=== PATIENT | female | born 1945 | race Caucasian/White ===

== ENCOUNTER → 2020-06-30 15:49 | Outpatient (CLI) | payer MEDICARE, SELFPAY | PROVIDERS: Visit Provider Urology | DX: N39.0 Urinary tract infection, site not specified (principal) | CPT/HCPCS: 87086 ==

== ENCOUNTER 2021-06-29 15:27 | Emergency (ER) | payer MEDICARE, SELFPAY ==
--- NOTE | 2021-06-29 15:59 | ECG_ITS ---
APPROVED REPORT Exam: Resting ECG HR:75 bpm ECG Measurements Heart Rate 75 AXES NE 116 P 99 QRSd 60 QRS 40 QT 392 T 70 QTc 437 Conclusion Normal sinus rhythm Low voltage QRS Septal infarct, age undetermined Abnormal ECG Electronically signed by : Saeed Jordan MD 06/30/2021 10:55:45
[2021-06-29 16:07] VITALS: BP 135/63; PULSE 85; RESP 18; TEMP 36.8; O2SAT 96; BMI 31.6
--- NOTE | 2021-06-29 16:14 | HMH.EDGENADL ---
ED Disposition Clinical Impression: Atypical chest pain Disposition: Home, Self-Care Condition on Discharge: Good Instructions: DI for Shortness of Breath, DI for Atypical Chest Pain Additional Instructions: Additional instructions for CHEST PAIN: See your physician as soon as possible for further evaluation. Return immediately if worsening chest pain, vomiting, shortness of breath, fever, coughing of blood. Referrals: Lizette Brady [Primary Care Provider] - - Critical Care Critical Care Time: No Attestation: On 06/29/21, the high probability of a clinically significant, sudden or life threatening deterioration of the following system(s) required my full and direct attention, intervention and personal management. The time I documented below is in addition to time spent performing reported procedures but includes the following listed in this critical care notation. Medical Decision Making - Warren Inquiry Pt receiving controlled substance: No Vital Signs: 06/29/21 16:07 Temperature 98.3 F Temperature Source Oral Pulse Rate [Right Radial] 85 Respiratory Rate 18 Blood Pressure [Right Arm] 135/63 Blood Pressure Mean [Right Arm] 87 Blood Pressure Source [Right Arm] Automatic Cuff Blood Pressure Position [Right Arm] Supine 02 Sat by Pulse Oximetry 96 Oxygen Delivery Method Room Air - Lab Data Lab Results 06/29/21 16:39: WBC 9.2, RBC 3.48 L, Hgb 9.0 L, Hct 31.3 L, MCV 89.9, MCH 26.0 L, MCHC 28.9 L, RDW 15.5, Plt Count 421, MPV 8.7, Neut % (Auto) 82.3 H, Lymph % (Auto) 12.1, [place] % (Auto) 4.8, Eos % (Auto) 0.5, Baso % (Auto) 0.3, Neut # (Auto) 7.5, Lymph # (Auto) 1.1, [place] # (Auto) 0.4, Eos # (Auto) 0.0, Baso # (Auto) 0.0 06/29/21 16:39: Sodium 140, Potassium 3.4 L, Chloride 92 L, Carbon Dioxide 39 H, Anion Gap 12.4, BUN 12, Creatinine 0.80, Estimated Creat Clear 63, Estimated GFR 70, Est GFR ( Amer) 85, Glucose 108 H, Calcium 9.0, Total Bilirubin 0.2, AST 20, ALT 11 L, Alkaline Phosphatase 75, Troponin I < 0.01, Total Protein 7.4, Albumin 4.4, Globulin 3.0, Albumin/Globulin Ratio 1.5 06/29/21 16:39: Lactate 0.7 06/29/21 16:39: D-Dimer 0.57 H 06/29/21 19:15: Troponin I < 0.01 Result diagrams: 06/29/21 16:39 06/29/21 16:39 Orders (Tests/Meds): ED MEDICATIONS Discontinued Medications Generic Name Dose Route Start Last Admin Trade Name Grey PRN Reason Stop Dose Admin Iopamidol 70 ml 06/29/21 17:47 06/29/21 17:47 Iopamidol-370 (76%);100ml Bottle IV 06/29/21 17:48 70 ml ONCE ONE Administration Sodium Chloride 50 ml 06/29/21 17:47 06/29/21 17:47 0.9 % Sodium Chloride 50 Ml Vial IV 06/29/21 17:48 50 ml ONCE ONE Administration Sodium Chloride 10 ml 06/29/21 17:47 06/29/21 17:47 Sodium Chloride 0.9% 10ml Syr (Rad Only) IV 06/29/21 17:48 10 ml ONCE ONE Administration ORDERS Category Date Time Status Troponin I Q3H Lab 06/29/21 22:30 Ordered Blood Culture Stat Micro 06/29/21 16:39 Received - Radiology Data #1 Image(s): Chest Image Reviewed: Yes I have reviewed radiologist's interpretation PROCEDURE INFORMATION: Exam: XR Chest Exam date and time: 06/29/2021 4:18 PM Age: 75 years old Clinical indication: Cough; Additional info: Coughing, SOB TECHNIQUE: Imaging protocol: XR of the chest. Views: 2 views. COMPARISON: No relevant prior studies available. FINDINGS: Lungs: The left basilar opacity is small, but worrisome for pneumonia. Pleural spaces: Unremarkable. No pleural effusion. No pneumothorax. Heart/Mediastinum: Heart is mildly enlarged. Bones/joints: Unremarkable. IMPRESSION: Small left basilar pneumonia suspected. Recommend follow-up to ensure resolution. - CT Data CT Scan: Chest (CTA) Time Received: 18:[address] Reviewed: Yes: I have viewed the radiologist's interpretation Findings Narrative: PROCEDURE INFORMATION: Exam: CTA Ch
--- NOTE | 2021-06-29 16:18 | XR_ITS ---
PROCEDURE INFORMATION: Exam: XR Chest Exam date and time: 06/29/2021 4:18 PM Age: 75 years old Clinical indication: Cough; Additional info: Coughing, SOB TECHNIQUE: Imaging protocol: XR of the chest. Views: 2 views. COMPARISON: No relevant prior studies available. FINDINGS: Lungs: The left basilar opacity is small, but worrisome for pneumonia. Pleural spaces: Unremarkable. No pleural effusion. No pneumothorax. Heart/Mediastinum: Heart is mildly enlarged. Bones/joints: Unremarkable. IMPRESSION: Small left basilar pneumonia suspected. Recommend follow-up to ensure resolution.
--- NOTE | 2021-06-29 16:21 | PC.NURSE ---
Spoke with vielka in RAD to get chest xray
[2021-06-29 16:54] LABS: Basophils % 0.3 % (0.1-2.0); Eosinophils % 0.5 % (0.1-12.0); Hematocrit 31.3 % (37.0-47.0); Lymphocytes # 1.1 K/mm3 (0.7-4.5); Lymphocytes % 12.1 % (10-50); Mean Corpuscular HGB Conc 28.9 g/dL (31.8-35.4); Mean Corpuscular Volume 89.9 fl (81-99); Mean Platelet Volume 8.7 fl (7.4-10.4); Monocytes # 0.4 K/mm3 (0.1-1.0); Monocytes % 4.8 % (1.7-9.3); Neutrophils # 7.5 K/mm3 (1.8-7.8); Neutrophils % 82.3 % (37.0-80.0); Platelet Count 421 K/mm3 (142-424); Red Blood Count 3.48 M/mm3 (4.20-5.40); Red Cell Distribution Width 15.5 % (11.5-17.5); White Blood Count 9.2 K/mm3 (4.8-10.8)
[2021-06-29 17:08] LABS: Alanine Aminotransferase 11 U/L (12-78); Albumin Level 4.4 g/dl (3.5-5.0); Albumin/Globulin Ratio 1.5 (1.1-1.8); Alkaline Phosphatase 75 U/L (38-126); Aspartate Amino Transferase 20 U/L (14-36); Bilirubin,Total 0.2 mg/dl (0.2-1.3); Blood Urea Nitrogen 12 mg/dl (7-17); Chloride 92 mmol/L (98-107); Creatinine Clearance Estimated 63 mL/min (50-200); Estimated Glomerular Filt Rate 70 ml/min (>60); GFR (African American) 85 ML/MIN (>60); Glucose 108 mg/dl (74-100); Potassium 3.4 mmoL/L (3.5-5.1); Sodium 140 mmol/L (136-145); Total Protein,Serum 7.4 g/dl (6.3-8.2)
[2021-06-29 17:09] LABS: Lactic Acid 0.7 mmol/L (0.7-2.1)
[2021-06-29 17:13] LABS: D-Dimer 0.57 ug/mL (0.0-0.5)
[2021-06-29 17:15] LABS: Anion Gap 12.4 mEq/L (5-15); Carbon Dioxide 39 mmol/L (22.0-30.0)
--- NOTE | 2021-06-29 17:27 | CT_ITS ---
PROCEDURE INFORMATION: Exam: CTA Chest With Contrast Exam date and time: 06/29/2021 5:27 PM Age: 75 years old Clinical indication: Chest wall pain; Additional info: Cp, SOA, low o2 sat, elev d-dimer TECHNIQUE: Imaging protocol: Computed tomographic angiography of the chest with contrast. 3D rendering (Not supervised by radiologist): MIP and/or 3D reconstructed images were created by the technologist. Radiation optimization: All CT scans at this facility use at least one of these dose optimization techniques: automated exposure control; mA and/or kV adjustment per patient size (includes targeted exams where dose is matched to clinical indication); or iterative reconstruction. Contrast material: ISOVUE; Contrast volume: 70 ml; Contrast route: INTRAVENOUS (IV); COMPARISON: CR XR CHEST 2V 06/29/2021 4:44 PM FINDINGS: Pulmonary arteries: No evidence of pulmonary embolus to the segmental level in most cases. Aorta: Unremarkable. No aortic aneurysm. No aortic dissection. Lungs: A few small calcified pulmonary nodules are likely benign granulomata. Mild bilateral atelectasis. Mild peribronchial thickening is seen primarily centrally. Pleural spaces: Unremarkable. No pneumothorax. No pleural effusion. Heart: Coronary artery calcifications noted. Lymph nodes: Unremarkable. No enlarged lymph nodes. Pancreas: Some focal hypoattenuation seen in the pancreatic head. This is partially imaged and may represent volume averaging, but correlation with recent CT or MR of the abdomen is recommended. Bones/joints: Unremarkable. No acute fracture. Soft tissues: Unremarkable. IMPRESSION: 1. No evidence of pulmonary embolus. 2. Evidence of mild bronchitis. 3. Likely artifactual focal hypoattenuation in the pancreas. However, recommend correlation with recent CT or MRI abdomen to exclude a sinister cause.
[2021-06-29 17:34] LABS: Troponin I < 0.01 ng/ml (0.00-0.034)
[2021-06-29 19:54] LABS: Troponin I < 0.01 ng/ml (0.00-0.034)
[2021-06-29 20:12] VITALS: BP 132/79; PULSE 75; RESP 18; TEMP 36.8; O2SAT 98
== END 2021-06-29 20:28 | disposition home or self-care (01) ==
PROVIDERS: Emergency Provider Emergency Medicine; PCP Family Medicine
DX: R07.89 Other chest pain (principal); I10 Essential (primary) hypertension; E78.5 Hyperlipidemia, unspecified; J44.9 Chronic obstructive pulmonary disease, unspecified
CPT/HCPCS: 36415; 71046; 71275; 80053; 83605; 84484; 85025; 85378; 87040; 93005; 99283; Q9967

== ENCOUNTER 2022-03-21 11:07 | Observation (INO) | payer MEDICARE, SELFPAY ==
[2022-03-21] VITALS (9 sets, daily range): BP systolic 122–147; BP diastolic 49–72; PULSE 77–87; RESP 16–22; TEMP 36.7–37.4; O2SAT 94–99; BMI 28.3; BMI 28.0
--- NOTE | 2022-03-21 11:16 | HMH.EDFALL ---
ED Disposition Clinical Impression: Respiratory failure Qualifiers: Chronicity: unspecified Respiratory failure complication: hypercapnia Qualified Code(s): J96.92 - Respiratory failure, unspecified with hypercapnia Disposition: Admitted as Observation Condition on Discharge: Good - Critical Care Critical Care Time: Yes Attestation: On , the high probability of a clinically significant, sudden or life threatening deterioration of the following system(s) required my full and direct attention, intervention and personal management. The time I documented below is in addition to time spent performing reported procedures but includes the following listed in this critical care notation. Vital system(s) involved:: Respiratory Failure My critical care processes included: Assessment & monitoring of V/S, Initial and Re-exams, Data Review/Interpretation, Coordinating Care, Medication Orders and management, Documentation Medical Decision Making - Medical Records Medical records reviewed: Yes: I reviewed the patient's medical records. - Warren Inquiry Pt receiving controlled substance: No Vital Signs: 03/21/22 11:23 03/21/22 11:30 03/21/22 12:59 Temperature 99.3 F Temperature Source Oral Pulse Rate 85 Pulse Rate [Left Radial] 87 Respiratory Rate 17 Blood Pressure 141/64 H 147/71 H Blood Pressure [Right Arm] 128/62 Blood Pressure Mean 89 87 Blood Pressure Mean [Right Arm] 84 02 Sat by Pulse Oximetry 99 96 97 Oxygen Delivery Method Nasal Cannula Nasal Cannula Oxygen Flow Rate (LPM) 3 3 - Lab Data Lab Results 03/21/22 11:22: WBC 6.8, RBC 3.39 L, Hgb 10.2 L, Hct 33.5 L, MCV 98.9, MCH 30.1, MCHC 30.5 L, RDW 13.0, Plt Count 273, MPV 7.6, Neut % (Auto) 81.5 H, Lymph % (Auto) 12.8, [place] % (Auto) 4.7, Eos % (Auto) 0.5, Baso % (Auto) 0.6, Neut # (Auto) 5.5, Lymph # (Auto) 0.9, [place] # (Auto) 0.3, Eos # (Auto) 0.0, Baso # (Auto) 0.0 03/21/22 11:22: Sodium 138, Potassium 3.4 L, Chloride 89 L, Carbon Dioxide 48 H*, Anion Gap 4.4 L, BUN 14, Creatinine 0.80, Estimated Creat Clear 56, Estimated GFR 70, Est GFR ( Amer) 85, Glucose 141 H, Calcium 9.3, Total Bilirubin 0.4, AST 19, ALT 12, Alkaline Phosphatase 69, Total Protein 7.0, Albumin 4.1, Globulin 2.9, Albumin/Globulin Ratio 1.4 03/21/22 11:44: Urine Color Yellow, Urine Appearance Clear, Urine pH 7.0, Ur Specific [place] <= 1.005, Urine Protein Negative, Urine Glucose (UA) Negative, Urine Ketones Negative, Urine Blood Trace-i, Urine Nitrate Negative, Urine Bilirubin Negative, Urine Urobilinogen 0.2, Ur Leukocyte Esterase 2+ A, Urine RBC Occasional, Urine WBC 5-10, Ur Squamous Epith Cells 10-20, Urine Bacteria 2+, Urine Mucus Trace 03/21/22 12:05: Specimen Source R radial, O2 % 3lpm, ABG pH 7.30 L, ABG pCO2 99.0 H, ABG pO2 95.7, ABG HCO3 47.7 H, ABG Total CO2 50.8 H, ABG O2 Saturation 97, ABG Base Excess 21.3 H, Joshua Test Acceptable Result diagrams: 03/21/22 11:22 03/21/22 11:22 Orders (Tests/Meds): ED MEDICATIONS Generic Name Dose Route Start Last Admin Trade Name Grey PRN Reason Stop Dose Admin Ceftriaxone Sodium 1 gm/ 50 mls @ 100 mls/hr 03/21/22 14:15 Sodium Chloride IV 04/04/22 14:14 Q24H COUNTS INCLUDE 234 BEDS AT THE [facility] ORDERS Category Date Time Status Chest XR -- portable [XR chest portable] Stat Exams 03/21/22 13:21 Taken Rapid PCR Covid and Flu A/B Stat Lab 03/21/22 13:28 Received Urine Culture Stat Micro 03/21/22 11:44 Received - ECG Data Tracing #1 I reviewed this ECG and interpreted as documented below: ekg by me nsr, qrs non spec, no st elev - Physician Consults Time: 14:04 (dr deal accepts obs here) Fall HPI - General Stated Complaint: Fall Time Seen by Provider: 03/21/22 11:16 - History of Present Illness HPI Narrative: lightheaded and 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
--- NOTE | 2022-03-21 11:21 | ECG_ITS ---
APPROVED REPORT Exam: Resting ECG HR:84 bpm ECG Measurements Heart Rate 84 AXES ND 108 P 55 QRSd 94 QRS 65 QT 361 T 68 QTc 401 Conclusion SINUS RHYTHM WITH SHORT ND INTERVAL POSSIBLE RIGHT VENTRICULAR CONDUCTION DELAY [RSR (QR) IN V1/V2] BORDERLINE ECG UNCONFIRMED REPORT Electronically signed by : Saeed Jordan MD 03/21/2022 21:04:50
--- NOTE | 2022-03-21 11:23 | PC.NURSE ---
EKG obtained and given to SISSY MONTES
--- NOTE | 2022-03-21 11:25 | PC.NURSE ---
Family at BS
[2022-03-21 11:35] LABS: Basophils % 0.6 % (0.1-2.0); Chloride 89 mmol/L (98-107); Eosinophils % 0.5 % (0.1-12.0); Hematocrit 33.5 % (37.0-47.0); Hemoglobin 10.2 g/dL (12.2-16.2); Lymphocytes # 0.9 K/mm3 (0.7-4.5); Lymphocytes % 12.8 % (10-50); Mean Corpuscular HGB Conc 30.5 g/dL (31.8-35.4); Mean Corpuscular Hemoglobin 30.1 pg (27.0-31.2); Mean Corpuscular Volume 98.9 fl (81-99); Mean Platelet Volume 7.6 fl (7.4-10.4); Monocytes # 0.3 K/mm3 (0.1-1.0); Monocytes % 4.7 % (1.7-9.3); Neutrophils # 5.5 K/mm3 (1.8-7.8); Neutrophils % 81.5 % (37.0-80.0); Platelet Count 273 K/mm3 (142-424); Potassium 3.4 mmoL/L (3.5-5.1); Red Blood Count 3.39 M/mm3 (4.20-5.40); Sodium 138 mmol/L (136-145); White Blood Count 6.8 K/mm3 (4.8-10.8)
[2022-03-21 11:38] LABS: Alanine Aminotransferase 12 U/L (12-78); Albumin Level 4.1 g/dl (3.5-5.0); Albumin/Globulin Ratio 1.4 (1.1-1.8); Alkaline Phosphatase 69 U/L (38-126); Aspartate Amino Transferase 19 U/L (14-36); Bilirubin,Total 0.4 mg/dl (0.2-1.3); Blood Urea Nitrogen 14 mg/dl (7-17); Calcium 9.3 mg/dl (8.4-10.2); Creatinine Clearance Estimated 56 mL/min (50-200); Estimated Glomerular Filt Rate 70 ml/min (>60); GFR (African American) 85 ML/MIN (>60); Globulin 2.9 g/dL (1.3-3.2); Glucose 141 mg/dl (74-100)
[2022-03-21 11:47] LABS: Anion Gap 4.4 mEq/L (5-15); Carbon Dioxide 48 mmol/L (22.0-30.0)
--- NOTE | 2022-03-21 11:55 | PC.NURSE ---
ua obtained and sent to the lab
--- NOTE | 2022-03-21 12:26 | PC.NURSE ---
called RT for abg collection
[2022-03-21 12:29] LABS: Microscopic, Urine URINE MICROSCOPIC (MICROSCOPIC)
[2022-03-21 12:32] LABS: Appearance,Urine CLEAR (Clear); Bilirubin,Urine Negative (Negative); Blood, Urine TRACE-I (Negative); Color,Urine YELLOW (Yellow); Glucose,Urine (UA) Negative (Negative); Ketones,Urine Negative (Negative); Leukocyte Esterase,Urine 2+ (Negative); Nitrate,Urine Negative (Negative); Protein,Urine Negative (Negative); Specific Gravity, Urine <= 1.005 (1.005-1.030); Urobilinogen,Urine 0.2 EU/dl (0.2)
[2022-03-21 12:39] LABS: ABG Base Excess 21.3 mmol/L (-2.4-2.3); ABG HCO3 47.7 mmhg (22.0-26.0); ABG Oxygen Saturation 97 % (90-100); ABG PO2 95.7 mmhg (80-100); ABG TCO2 50.8 mmhg (23-27)
[2022-03-21 12:40] LABS: Allen's Test ACCEPTABLE; Oxygen 3LPM %; Source R RADIAL
[2022-03-21 12:45] LABS: Bacteria,Urine 2+ /lpf; Mucus,Urine Trace /lpf; RBC,Urine Occasional #/hpf (0-3)
--- NOTE | 2022-03-21 13:20 | PC.NURSE ---
called RT for bipap
--- NOTE | 2022-03-21 13:21 | XR_ITS ---
FINAL REPORT CLINICAL HISTORY: soa, DIZZINESS, PT ON BIPAP COMPARISON: June 29, 2021 FINDINGS: A single PA view of the chest was obtained. The cardiac and mediastinal silhouettes are within normal limits. The lungs are clear. There is no effusion or pneumothorax. No acute osseous abnormality is identified. IMPRESSION: No radiographic evidence of acute cardiac or pulmonary disease on this single view of the chest. Reviewed, Interpreted and Dictated by Rupali Hansen MD Transcribed by Kanchan Jarquin Authenticated and [facility]
--- NOTE | 2022-03-21 13:27 | PC.NURSE ---
RT in room to set up BIPAP on patient
--- NOTE | 2022-03-21 13:29 | PC.NURSE ---
Covid swab sent to lab
[2022-03-21 13:33] LABS: Influenza A, PCR Not Detected (NotDetected); Influenza B, PCR Not Detected (NotDetected)
--- NOTE | 2022-03-21 13:55 | PC.NURSE ---
Called and spoke with Arabella in dietary for regular lunch tray
--- NOTE | 2022-03-21 14:02 | PC.NURSE ---
Spoke with Enid in care management regarding patient admission
[2022-03-21 14:26] LABS: Coronavirus 19, PCR Detected (NotDetected)
--- NOTE | 2022-03-21 14:29 | PC.NURSE ---
pt sitting up on side of the bed with assistance from Mary Underwood, eating lunch tray. Family at . pt is wearing NC on 3 liters.
--- NOTE | 2022-03-21 14:32 | PC.NURSE ---
Isolation precautions sign placed on ER room door
--- NOTE | 2022-03-21 14:34 | PC.NURSE ---
notified supervisor [employer] of positive covid test states she will get pt a bed assignment
--- NOTE | 2022-03-21 15:18 | PC.NURSE ---
attempted to call report to steve on the floor. states she will call back
--- NOTE | 2022-03-21 16:03 | PC.NURSE ---
called report to demetri wilson on the floor
--- NOTE | 2022-03-21 16:44 | HMH.HP ---
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 She has not been sleeping well and has had a lot of stress. 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 She has not been sick or been around anyone who has been sick. 911 was called and she was brought to the ER. After evaluation in the emergency room, she was found to have a PCO2 of 99. She also was found to be COVID-positive. Chest x-ray showed nothing acute. She will be admitted for hypercapnic respiratory failure and started on BIPAP. <Regina Pabon 03/21/22 17:41> [facility] History I have reviewed the patient's past medical history: Yes <Regina Pabon 03/21/22 16:49> Medical History: Reports:: Home Oxygen (3 liters/NC) <Suhas Berger - 03/21/22 18:38> Reports:: Chronic Obstructive Pulmonary Disease (COPD), Hyperlipidemia, Hypertension, Lung Disease <Regina Pabon 03/21/22 17:41> *Have you ever received a pneumonia vaccine?: No <Regina Pabon 03/21/22 16:49> *Have you received a flu vaccine this season?: No <Regina Pabon 03/21/22 16:49> Other Medical History: Reports: Arthritis, Thyroid Disease <Regina Pabon 03/21/22 16:49> Other Surgeries: Yes: Other <Suhas Berger - 03/21/22 18:38> Yes: Colonoscopy, Hysterectomy-Total, Other (hammertoe bilateral) <Regina Pabon 03/21/22 17:41> Amputation: No <Regina Pabon 03/21/22 16:49> Fractures: No <Regina Pabon 03/21/22 16:49> - *Social History Smoking Status: Never smoker <Regina Pabon 03/21/22 16:49> Alcohol Intake: never <Regina Pabon 03/21/22 16:49> Substance Use Type: denies use <Regina Pabon 03/21/22 16:49> *Occupational Status:: retired <CmRegina 03/21/22 16:49> Housing: house <Regina Pabon 03/21/22 16:49> Household Members: none <Regina Pabon 03/21/22 16:49> *Travel in the last 8 weeks: None <CmRegina - 03/21/22 16:49> Family Hx:: Hypertension <IanshahzadRegina 03/21/22 17:41> Review of Systems - Constitutional Denies chills, Denies fever(s) <IanshahzadRegina 03/21/22 17:41> - Eyes Denies blurry vision, Denies double vision <IanshahzadRegina 03/21/22 17:41> - ENT Denies nasal congestion, Denies sore throat <IanshahzadRegina 03/21/22 17:41> - *Cardiovascular Denies chest pain, Denies shortness of breath <IanshahzadRegina 03/21/22 17:41> - *Respiratory Denies cough, Denies shortness of breath [email or web address] 03/21/22 17:41> - *Gastrointestinal Denies abdominal pain, Denies loose stools, Denies nausea, Denies vomiting <IanshahzadRegina 03/21/22 17:41> - *Genitourinary Denies difficulty urinating, Denies painful urination <IanshahzadRegina 03/21/22 17:41> - *Musculoskeletal Denies joint pain <[email or web address] 03/21/22 17:41> - *Neurologic Reports weakness, Denies headache(s), Denies dizziness <[email or web address] 03/21/22 17:41> Meds Home Medications Medication Instructions Recorded Confirmed Type albuterol sulfate 1.25 mg INHALATION ONCE 10/30/17 03/21/22 History clonazepam 1 mg tablet 1 mg PO TIDP PRN 10/30/17 03/21/22 History conjugated estrogens 25 mg 1 dose IM DIRECTED 10/30/17 03/21/22 History solution for injection estradiol 0.05 mg/24 hr semiweekly 1 patch TRANSDERMA ONCE 10/30/17 03/21/22 History transdermal patch lisinopril 10 mg tablet 10 mg PO ONCE 10/30/17 03/21/22 History aripiprazole 5 mg tablet 5 mg PO DAILY tab 01/29/18 03/21/22 History pantoprazole 20 mg tablet,delayed 20 mg PO DAILY tab 01/29/18 03/21/22 History release amlodipine 2.5 mg tablet 2.5 mg PO DAILY 04/30/18 03/21/22 History levothyroxine 25 mcg tablet 25 mcg PO DAILY 04/30/18 03/21/22 History <N
[2022-03-22] VITALS: BP 136/45; PULSE 71; RESP 20; TEMP 36.7; O2SAT 99
[2022-03-22 04:00] VITALS: BP 132/59; PULSE 82; RESP 22; TEMP 36.6; O2SAT 97
--- NOTE | 2022-03-22 04:41 | PC.NURSE ---
Patient continues to be A&O x4. Patient has rested well this shift. Patient currently on 3l NC and tolerates it well sating above 90%. However when o2 removed patient desats into the 80%. Patient ambulated to the restroom with standby assist. No other complaints voiced.
[2022-03-22 04:47] VITALS: BMI 27.0
--- NOTE | 2022-03-22 07:24 | P.CONPHA_ITS ---
[facility] Pharmacy VTE Monitoring - Patient Demographics Admission date: 03/22/22 Report Date: 03/22/22 Time: 07:24 Allergies/Adverse Reactions: Patient Allergies erythromycin base Adverse Reaction (Unknown, Verified 03/21/22 16:21) Vomiting Height: 1.6 m Weight: 69.173 kg Patient Problems: Current Active Problems Respiratory failure (Acute) Hypercapnic respiratory failure (Acute) COVID-19 (Acute) Hypertension (Chronic) Hyperlipidemia (Chronic) COPD (chronic obstructive pulmonary disease) (Acute) Oxygen dependent (Acute) Hypothyroidism (Acute) - VTE Risk Labs: VTE Related Lab Results Hgb 10.2 g/dL (12.2-16.2) L 03/21/22 11:22 Hct 33.5 % (37.0-47.0) L 03/21/22 11:22 Plt Count 273 K/mm3 (142-424) 03/21/22 11:22 BUN 14 mg/dl (7-17) 03/21/22 11:22 Creatinine 0.80 mg/dl (0.52-1.04) 03/21/22 11:22 Estimated Creat Clear 56 mL/min (50-200) 03/21/22 11:22 Was VTE Risk Assessment Performed: Yes VTE Score: 6 VTE Risk Level: Moderate Risk Clinical Trial Participant: No - Prophylaxis VTE Prophylaxis Ordered?: Yes Types of VTE Prophylaxis: TEDS Knee High
[2022-03-22 07:34] VITALS: BP 133/52; PULSE 74; RESP 16; TEMP 36.8; O2SAT 98
[2022-03-22 08:00] VITALS: O2SAT 94
--- NOTE | 2022-03-22 08:26 | HMH.ACPN2 ---
<Regina Pabon - Last Filed: 03/22/22 08:26> Internal Medicine - PN: Subj *Date: 03/22/22 *Time: 08:26 Interval history: Patient states she is feeling better this morning. She has had no more near syncopal episodes. Her weakness has improved. She denies any shortness of breath or chest pain. She slept all night with nasal oxygen and has not had BiPAP since the emergency room. Exam Vital signs and Labs for Last 24 Hours: Temp Pulse Resp BP Pulse Ox 98.3 F 74 16 133/52 L 98 03/22/22 07:34 03/22/22 07:34 03/22/22 07:34 03/22/22 07:34 03/22/22 07:34 Laboratory Results - last 24 hr 03/21/22 11:22: WBC 6.8, RBC 3.39 L, Hgb 10.2 L, Hct 33.5 L, MCV 98.9, MCH 30.1, MCHC 30.5 L, RDW 13.0, Plt Count 273, MPV 7.6, Neut % (Auto) 81.5 H, Lymph % (Auto) 12.8, [place] % (Auto) 4.7, Eos % (Auto) 0.5, Baso % (Auto) 0.6, Neut # (Auto) 5.5, Lymph # (Auto) 0.9, [place] # (Auto) 0.3, Eos # (Auto) 0.0, Baso # (Auto) 0.0 03/21/22 11:22: Sodium 138, Potassium 3.4 L, Chloride 89 L, Carbon Dioxide 48 H*, Anion Gap 4.4 L, BUN 14, Creatinine 0.80, Estimated Creat Clear 56, Estimated GFR 70, Est GFR ( Amer) 85, Glucose 141 H, Calcium 9.3, Total Bilirubin 0.4, AST 19, ALT 12, Alkaline Phosphatase 69, Total Protein 7.0, Albumin 4.1, Globulin 2.9, Albumin/Globulin Ratio 1.4 03/21/22 11:44: Urine Color Yellow, Urine Appearance Clear, Urine pH 7.0, Ur Specific [place] <= 1.005, Urine Protein Negative, Urine Glucose (UA) Negative, Urine Ketones Negative, Urine Blood Trace-i, Urine Nitrate Negative, Urine Bilirubin Negative, Urine Urobilinogen 0.2, Ur Leukocyte Esterase 2+ A, Urine RBC Occasional, Urine WBC 5-10, Ur Squamous Epith Cells 10-20, Urine Bacteria 2+, Urine Mucus Trace 03/21/22 12:05: Specimen Source R radial, O2 % 3lpm, ABG pH 7.30 L, ABG pCO2 99.0 H, ABG pO2 95.7, ABG HCO3 47.7 H, ABG Total CO2 50.8 H, ABG O2 Saturation 97, ABG Base Excess 21.3 H, Joshua Test Acceptable 03/21/22 13:28: SARS-CoV-2 (PCR) Detected A, Influenza A Untype (PCR) Not detected, Influenza Type B (PCR) Not detected I & O for Last 24 hours: Intake & Output 03/19/22 03/20/22 03/21/22 03/22/22 11:59 11:59 11:59 11:59 Intake Total 300 / 300 Balance 300 / 300 Weight 160 lb 152 lb 8 oz Microbiology Reports for the Last 24 Hours: Microbiology 03/21/22 11:44 Urine,Clean Catch Urine Culture - Preliminary Gram Positive Cocci - Constitutional no acute distress - *Routine Respiratory Exam Present: CTA bilaterally - *Routine Cardiovascular Exam Present: RRR - *Routine Abdominal Exam Present: soft, normoactive bowel sounds. Absent: tenderness - *Routine Extremities Exam Absent: cyanosis, clubbing, edema - *Routine Skin Exam Present: warm. Absent: rash - *Routine Neurological Exam Present: alert, oriented X3 Assessment and Plan (1) Hypercapnic respiratory failure Status: Acute Category: Medical Code(s): J96.92 - Respiratory failure, unspecified with hypercapnia (2) COVID-19 Status: Acute Category: Medical Code(s): U07.1 - COVID-19 (3) Hypertension Status: Chronic Category: Medical Code(s): I10 - Essential (primary) hypertension (4) Hyperlipidemia Status: Chronic Category: Medical Code(s): E78.5 - Hyperlipidemia, unspecified (5) COPD (chronic obstructive pulmonary disease) Status: Acute Category: Medical Code(s): J44.9 - Chronic obstructive pulmonary disease, unspecified (6) Oxygen dependent Status: Acute Category: Medical Code(s): Z99.81 - Dependence on supplemental oxygen (7) Hypothyroidism Status: Acute Category: Medical Code(s): E03.9 - Hypothyroidism, unspecified - Assessment and plan all Dx Assessment and Plan for all problems:: Patient is improving. Her oxygen saturations have been 98% on 3 L. She has no other COVID symptoms. She can likely be discharged home today. <Suhas Berger - Last Filed: 03/22/22 10:31> Interna
--- NOTE | 2022-03-22 08:46 | PC.NURSE ---
spoke with md about patient on current 3l o2. didn't have bipap upon coming to floor, nor any follow up abg orders. he stated patient looked well and was doing well on base line o2 so would readdress after morning rounds. did not feel it was needed right now.
[2022-03-22 09:07] LABS: Basophils % 0.5 % (0.1-2.0); Eosinophils # 0.1 K/mm3 (0.0-0.4); Eosinophils % 1.6 % (0.1-12.0); Hematocrit 32.7 % (37.0-47.0); Hemoglobin 10.3 g/dL (12.2-16.2); Lymphocytes % 16.2 % (10-50); Mean Corpuscular HGB Conc 31.5 g/dL (31.8-35.4); Mean Corpuscular Hemoglobin 30.8 pg (27.0-31.2); Mean Corpuscular Volume 97.8 fl (81-99); Mean Platelet Volume 7.6 fl (7.4-10.4); Monocytes # 0.4 K/mm3 (0.1-1.0); Monocytes % 5.8 % (1.7-9.3); Neutrophils # 4.6 K/mm3 (1.8-7.8); Platelet Count 204 K/mm3 (142-424); Red Blood Count 3.35 M/mm3 (4.20-5.40); Red Cell Distribution Width 13.2 % (11.5-17.5); White Blood Count 6.1 K/mm3 (4.8-10.8)
[2022-03-22 09:33] LABS: Blood Urea Nitrogen 11 mg/dl (7-17); Calcium 9.1 mg/dl (8.4-10.2); Chloride 90 mmol/L (98-107); Creatinine Clearance Estimated 53 mL/min (50-200); Estimated Glomerular Filt Rate 97 ml/min (>60); GFR (African American) 118 ML/MIN (>60); Glucose 107 mg/dl (74-100); Potassium 4.4 mmoL/L (3.5-5.1); Sodium 137 mmol/L (136-145)
[2022-03-22 09:40] LABS: Anion Gap 11.4 mEq/L (5-15)
[2022-03-22 09:51] LABS: Carbon Dioxide 44 mmol/L (22.0-30.0)
--- NOTE | 2022-03-22 09:52 | HMH.PHAINT ---
HOME MEDICATION LIST VERIFIED USING LIST FROM PCP OFFICE AND PT INTERVIEW
--- NOTE | 2022-03-22 10:32 | PC.NURSE ---
RESP CARE NOTE: Pt is COvid positive and per CDC guidelines, sputum cannot be induced. Specimen cup at bedside with instruction to obtain an expectorated sputum specimen. Pt states understanding.
[2022-03-22 11:09] VITALS: BP 120/55; PULSE 71; RESP 17; TEMP 36.7; O2SAT 97
--- NOTE | 2022-03-22 22:29 | [facility].DCSUM ---
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 She has not been sleeping well and has had a lot of stress. 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 She has not been sick or been around anyone who has been sick. 911 was called and she was brought to the ER. After evaluation in the emergency room, she was found to have a PCO2 of 99. She also was found to be COVID-positive. Chest x-ray showed nothing acute. She will be admitted for hypercapnic respiratory failure and started on BIPAP. <Regina Pabon - 03/22/22 22:33> Hospital Course Hospital Course: Patient's chest x-ray showed nothing acute. She was started on BiPAP in the ER but then transitioned to nasal oxygen. She was started on Rocephin as well for a UTI. She appeared to have asymptomatic COVID. By 03/22/2022, she had had no more near syncopal episodes and alertness improved. She denies any shortness of breath or chest pain and had slept well with nasal oxygen. Oxygen saturations were 98% on 3 L. Her labs improved and she was stable to be discharged home on Cipro. Her urine culture is still pending. <Regina Pabon - 03/22/22 22:33> Objective Vital signs: Temp Pulse Resp BP Pulse Ox 98.0 F 71 17 120/55 L 97 03/22/22 11:09 03/22/22 11:09 03/22/22 11:09 03/22/22 11:09 03/22/22 11:09 <AbSuhas macias Ramon - 04/04/22 22:42> Temp Pulse Resp BP Pulse Ox 98.0 F 71 17 120/55 L 97 03/22/22 11:09 03/22/22 11:09 03/22/22 11:09 03/22/22 11:09 03/22/22 11:09 <eRgina Pabon - 03/22/22 22:33> Results Labs on day of discharge: Labs from last 24 hours 03/22/22 03/22/22 03/21/22 08:40 08:40 11:44 WBC 6.1 RBC 3.35 L Hgb 10.3 L Hct 32.7 L MCV 97.8 MCH 30.8 MCHC 31.5 L RDW 13.2 Plt Count 204 D MPV 7.6 Neut % (Auto) 76.0 Lymph % (Auto) 16.2 [place] % (Auto) 5.8 Eos % (Auto) 1.6 Baso % (Auto) 0.5 Neut # (Auto) 4.6 Lymph # (Auto) 1.0 [place] # (Auto) 0.4 Eos # (Auto) 0.1 Baso # (Auto) 0.0 Sodium 137 Potassium 4.4 D Chloride 90 L Carbon Dioxide 44 H* Anion Gap 11.4 BUN 11 Creatinine 0.60 D Estimated Creat Clear 53 Estimated GFR 97 Est GFR ( Amer) 118 D Glucose 107 H D Calcium 9.1 Urine Color Yellow Urine Appearance Clear Urine pH 7.0 Ur Specific Kirkman <= 1.005 Urine Protein Negative Urine Glucose (UA) Negative Urine Ketones Negative Urine Blood Trace-i Urine Nitrate Negative Urine Bilirubin Negative Urine Urobilinogen 0.2 Ur Leukocyte Esterase 2+ A Urine RBC Occasional Urine WBC 5-10 Ur Squamous Epith Cells 10-20 Urine Bacteria 2+ Urine Mucus Trace Preliminary micro results at discharge 03/21/22 11:44 Urine Culture - Preliminary Urine,Clean Catch Gram Positive Cocci <Regina Pabon - 03/22/22 22:33> DS: Diagnosis - Discharge Diagnosis (1) Hypercapnic respiratory failure Status: Acute (2) COVID-19 Status: Acute (3) Hypertension Status: Chronic (4) Hyperlipidemia Status: Chronic (5) COPD (chronic obstructive pulmonary disease) Status: Acute (6) Oxygen dependent Status: Acute (7) Hypothyroidism Status: Acute <Austin Pabona - 03/22/22 22:29> (1) Hypercapnic respiratory failure Status: Acute (2) COVID-19 Status: Acute (3) Hypertension Status: Chronic (4) Hyperlipidemia Status: Chronic (5) COPD (chronic obstructive pulmonary disease) Status: Acute (6) Oxygen dependent Status: Acute (7) Hypothyroidism Status: Acute <Norflee
--- NOTE | 2022-03-25 13:17 | CARE MANAGER ---
Contacted patient's daughter as patient was lying down resting. She states the patient is not feeling better. They did pickler helper her antibiotic and she is taking it. We discussed her follow up appointment and reaching out to PCP if she does improve sooner than the 8th when her appointment is scheduled. OLIVA Flores
== END 2022-03-22 14:19 | disposition home or self-care (01) ==
LOC: ER 14:04 → 2ND 14:17
PROVIDERS: Admitting Provider Family Medicine; Emergency Provider Emergency Medicine; PCP Family Medicine; Visit Provider Family Medicine
DX: J96.02 Acute respiratory failure with hypercapnia (principal); U07.1 COVID-19; Z79.899 Other long term (current) drug therapy; R55 Syncope and collapse; I10 Essential (primary) hypertension; E03.9 Hypothyroidism, unspecified; E78.5 Hyperlipidemia, unspecified
CPT/HCPCS: G0378; 36415; 71045; 80048; 80053; 81001; 82803; 85025; 87086; 87088; 87186; 93005; 99285; C9803; J0696; U0003; U0005

== ENCOUNTER 2025-04-02 12:14 | Outpatient (CLI) | payer MEDICARE, SELFPAY | END 2025-04-02 23:59 | disposition home or self-care (01) | LOC: LAB.DROPOF 04-04 12:14 | PROVIDERS: PCP Nurse Practitioner Family; Visit Provider Nurse Practitioner Family | DX: N39.0 Urinary tract infection, site not specified (principal) | CPT/HCPCS: 87086 ==